=== PATIENT | female | born 1975 | race Caucasian/White ===

== ENCOUNTER → 2020-10-02 13:35 | Outpatient (CLI) | payer OTHER, SELFPAY ==
--- NOTE | ~2020-10-02 | US_ITS ---
EXAMINATION: US thyroid DATE: 10/02/2020 13:52 INDICATION: Hypothyroidism. TECHNIQUE: Multiple ultrasound images of the thyroid were obtained. COMPARISON: None. FINDINGS: The right thyroid lobe measures 5.0 x 1.9 x 1.2 cm. The left thyroid lobe measures 5.7 x 1.7 x 1.2 c m. In the left thyroid lobe, there is a 7 mm solid, hypoechoic, [id number]-[id number]-oyqo nodule with ill-defi earnest margin without echogenic foci (TI-RADS TR4). In the right thyroid isthmus, there is a 4 mm nodule . IMPRESSION: 1. Small thyroid nodules, likely not clinically significant. No follow-up is needed. Reviewed, dictated and finalized at location A. [employer] IMPRESSION: 1. Small thyroid nodules, likely not clinically significant. No follow-up is ne eded.
== END ==
PROVIDERS: PCP Physician Assistant; Visit Provider Physician Assistant
DX: Z13.29 Encounter for screening for other suspected endocrine disorder (principal); E04.1 Nontoxic single thyroid nodule
CPT/HCPCS: 76536

== ENCOUNTER 2020-11-13 09:08 | Outpatient (CLI) | payer OTHER, SELFPAY ==
--- NOTE | 2020-11-25 12:21 | WPDHOMESLEEP ---
Sleep Study - Home Unattended Date of Study: 11/13/20 Ordering Provider: Daniel Tyler, MESERET Interpreting Provider: Jeanne Herman MD Home Sleep Study Type: Apnea Link Air Height: 1.65 m Weight: 72.575 kg Body Mass Index: 26.6 Neck Circumference (inches): 14.5 [place]: 10 Reason for Sleep Study Loud snoring, excessive daytime sleepiness Sleep History Beryl Day is a 44-year-old female who has loud snoring which keeps her family awake. She has non restorative sleep, wakes up feeling tired. She has snored her entire life but is gotten worse recently. She is tired throughout the day and needs naps. Her has witnessed abnormal breathing at night. Sometimes she gags and gasps for breath. She has used adhesive nasal tape without improvement. Her snoring is always loud enough that others complain about it. She does not awaken at night with heartburn, belching or coughing. She rarely awakens from sleep feeling short of breath. She frequently has trouble sleeping with a cold. She rarely gasp for breath at night but she always has breathing problems at night observed by others. She occasionally sweats excessively at night and occasionally notices her heart pounding or beating irregularly at night. She occasionally falls asleep during the day, never involuntarily or while driving. She does not have loss of muscle tone with strong emotion. She does not have daytime difficulties due to excessive sleepiness, she is a njxx-dh-heus mom. She occasionally feels paralyzed on waking or falling asleep and occasionally has vivid dreamlike scenes upon awakening or falling asleep. She does not feel afraid to go to sleep. She rarely has nightmares. She frequently remembers her dreams. She occasionally has racing thoughts. She occasionally feels sad depressed and anxious. She frequently has muscular tension. She occasionally notices parts of her body jerking. She rarely kicks at night. She does not have crawling and aching feelings in her legs and she does not have any kind of leg pain at night. She rarely has morning jaw pain. She occasionally grinds her teeth during sleep. She frequently has bothered by pain during the day. She has never awakened by pain at night. She constantly wakes up feeling stiff in the morning with sore or achy muscles and pain in the neck and spine. She always has daytime fatigue. She has nasal allergies, eczema in her ears and feeling of fluid draining down her neck neck at times. She reports large tonsils and a chronic neck pain that causes tingling in her hands. Normal bedtime is 10:00 p.m. falling asleep immediately sometimes wkaing to urinate before her normal wake time of 6:30 am. some nights she does not awaken during the night. On weekends she stays awake till 11:00 p.m. and wakes between 8 and 9:00 a.m.. She is currently sleeping in the guest room. she takes naps. A short nap may be refreshing. She is usually drowsy in the morning for 3 hours or longer. Habits: Tobacco none for over 20 years. Caffeine 1 serving per day. No alcohol or recreational drugs PMFSH Past Medical History Medical History (Updated 11/25/20 @ 12:35 by Jeanne Herman MD) Hyperlipidemia Snoring Family History Family History (Updated 05/15/14 @ 07:13 by DOCTOR UNKNOWN) Mother Hypertension Family history of elevated blood lipids Other Family history of malignant neoplasm of brain Social History Social History Smoking status: Never smoker Second hand tobacco smoke exposure: No Alcohol intake: current Sleep Procedure This test was performed using 4 channel monitoring including respiratory effort channel, snoring channel, heart rate channel, and oxygen saturation channel. This study was scored using CMS guidelines. Sleep Architecture Not applicable for home sleep test. Respiratory Analysis The recording time is 7 hours 15 minutes. Evaluation time is 7 hours 2 minutes. The apnea-hy
[2020-11-25 12:37] VITALS: BMI 26.6
== END 2020-11-13 09:09 | disposition home or self-care (01) ==
LOC: ANHCSM 09:09
PROVIDERS: Family Provider Family Medicine; PCP Physician Assistant; Visit Provider Physician Assistant
DX: G47.9 Sleep disorder, unspecified (principal); G47.33 Obstructive sleep apnea (adult) (pediatric)
CPT/HCPCS: 95806

== ENCOUNTER 2023-06-12 21:18 | Emergency (ER) | payer SELFPAY ==
[2023-06-12 21:20] VITALS: BP 103/61; PULSE 82; RESP 14; TEMP 36.4; O2SAT 99
--- NOTE | 2023-06-12 22:33 | PC.NURSE ---
Pt did not want to wait and left before being seen.
== END 2023-06-12 22:33 | disposition left against medical advice (07) ==
PROVIDERS: PCP Physician Assistant
DX: R11.2 Nausea with vomiting, unspecified (principal)
CPT/HCPCS: 99199